=== PATIENT | male | born 1940 | race Caucasian/White ===

== ENCOUNTER 2018-10-28 18:54 | Emergency (ER) | payer MEDICARE, OTHER ==
[~2018-10-28] VITALS: Ht 180.3 cm; Wt 68.0 kg
[2018-10-28] MEDS ORDERED: ASPIR 8181 MG PO (19:19)
[2018-10-28] MEDS ORDERED: LIPITOR10 MG PO (19:19)
[2018-10-28] MEDS ORDERED: MEXILETINE HCL200 M1 PO (19:19)
[2018-10-28] MEDS ORDERED: COREG12.5 MG PO (19:19)
[2018-10-28] MEDS ORDERED: COENZYME Q10200 M2 PO (19:20)
[2018-10-28] MEDS ORDERED: MAGOX 400400 MG PO (19:21)
[2018-10-28] MEDS ORDERED: FISH OIL 1,001000 M2 PO (19:21)
[2018-10-28 20:42] LABS: ABSOLUTE BASOPHILS 0.1 thou/uL (0.0-0.2); ABSOLUTE EOSINOPHILS 0.3 thou/uL (0.0-0.7); ABSOLUTE LYMPHOCYTES 1.9 thou/uL (0.8-5.3); ABSOLUTE MONOCYTES 0.9 thou/uL (0.0-1.2); ABSOLUTE NEUTROPHILS 4.1 thou/uL (1.6-8.1); BASOPHILS 0.8 %; EOSINOPHILS 3.9 %; HEMOGLOBIN 13.2 gm/dL (14.0-18.0); LYMPHOCYTES 26.4 %; MCH 33.5 pg (26.0-34.0); MCHC 33.9 g/dL (28.0-37.0); MCV 98.9 fL (80.0-100.0); MONOCYTES 12.7 %; MPV 8.4 fl. (7.2-11.1); NUCLEATED RBCS 0 /100WBC; PLATELET COUNT* 190 thou/uL (150-400); POLYS 56.2 %; RBC 3.94 mil/uL (4.50-6.00); RDW-CV 13.1 % (10.5-14.5); WBC 7.3 thou/uL (4.0-11.0)
[2018-10-28 20:47] LABS: INR 1.1; PROTIME 11.5 Seconds (9.20-11.50)
[2018-10-28 20:55] LABS: ANION GAP 4 mmol/L (7-16); BUN 20 mg/dL (7-18); CALCIUM 8.8 mg/dL (8.5-10.1); CHLORIDE 100 mmol/L (98-107); CO2 32 mmol/L (21-32); CREATININE 0.8 mg/dL (0.6-1.3); GLUCOSE 89 mg/dL (70-99); POTASSIUM 4.3 mmol/L (3.5-5.1); SODIUM 136 mmol/L (136-145); TROPONIN-I LEVEL <0.06 ng/mL (<0.06)
[2018-10-28 20:57] LABS: ALBUMIN 3.4 g/dL (3.4-5.0); ALKALINE PHOSPHATASE 59 U/L (46-116); LIPASE 150 U/L (73-393); NT-PRO BRAIN NAT PEPTIDE 426 pg/mL (<300); SGOT 32 U/L (15-37); SGPT 14 U/L (30-65); TOTAL BILIRUBIN 0.7 mg/dL (<0.1-1.0); TOTAL PROTEIN 6.8 g/dL (6.4-8.2)
[2018-10-28] MEDS ORDERED: OMEPRAZOLE40 MG PO (23:15)
[2018-10-28] MEDS ORDERED: CARAFATE 1 GM TA1 GM PO (23:15)
[2018-10-28 23:28] VITALS: BP 147/76
--- NOTE | 2018-10-29 12:01 | EKG ---
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: EMA : 1940 Requested By: Hailee Everett Order Number: [id number] MD: Calderon Hairston Measurements Intervals [place] Rate: 57 P: 60 MI: 341 QRS: 20 QRSD: 161 T: 1 QT: 437 QTc: 426 Interpretive Statements Sinus rhythm Prolonged MI interval Right bundle branch block No previous ECG available for comparison Electronically Signed On 10-29-2018 12:01:06 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
== END 2018-10-28 23:28 | disposition home or self-care (01) ==
LOC: M.ERS 18:54
PROVIDERS: Personal Emergency Response Attendant
DX: K21.9 Gastro-esophageal reflux disease without esophagitis (principal); Z95.5 Presence of coronary angioplasty implant and graft; Z90.79 Acquired absence of other genital organ(s)

== ENCOUNTER 2019-09-04 09:38 | Emergency (ER) | payer MEDICARE, OTHER ==
[~2019-09-04] VITALS: Ht 180.3 cm; Wt 68.0 kg
[~2019-09-04 09:38] MED LIST: ASPIR 8181 MG PO; CARAFATE 1 GM TA1 GM PO; COENZYME Q10200 M2 PO; COREG12.5 MG PO; FISH OIL 1,001000 M2 PO; LIPITOR10 MG PO; MAGOX 400400 MG PO; MEXILETINE HCL200 M1 PO; OMEPRAZOLE40 MG PO
[2019-09-04] MEDS ORDERED: VITAMIN B-121000 MC2 SUBLING (09:48)
[2019-09-04 10:03] LABS: ABSOLUTE EOSINOPHILS 0.1 thou/uL (0.0-0.7); ABSOLUTE LYMPHOCYTES 1.3 thou/uL (0.8-5.3); ABSOLUTE MONOCYTES 0.4 thou/uL (0.0-1.2); ABSOLUTE NEUTROPHILS 2.3 thou/uL (1.6-8.1); EOSINOPHILS 2.3 %; HEMOGLOBIN 13.7 gm/dL (14.0-18.0); LYMPHOCYTES 31.3 %; MCH 33.4 pg (26.0-34.0); MCHC 34.3 g/dL (28.0-37.0); MCV 97.6 fL (80.0-100.0); MONOCYTES 10.4 %; MPV 8.2 fl. (7.2-11.1); NUCLEATED RBCS 0 /100WBC; PLATELET COUNT* 192 thou/uL (150-400); RDW-CV 13.4 % (10.5-14.5); WBC 4.1 thou/uL (4.0-11.0)
[2019-09-04 10:14] LABS: CREATININE 1.3 mg/dL (0.6-1.3); POTASSIUM 4.6 mmol/L (3.5-5.1)
[2019-09-04 10:17] LABS: APTT 25.7 Seconds (25.0-31.3); INR 1.2; PROTIME 11.8 Seconds (9.20-11.50)
[2019-09-04 10:24] LABS: ALBUMIN 3.5 g/dL (3.4-5.0); TOTAL BILIRUBIN 1.1 mg/dL (<0.1-1.0); TOTAL PROTEIN 6.8 g/dL (6.4-8.2)
[2019-09-04 10:29] LABS: URINE BILIRUBIN NEGATIVE (Negative); URINE BLOOD NEGATIVE (Negative); URINE CLARITY CLEAR; URINE COLOR YELLOW; URINE GLUCOSE-RANDOM NEGATIVE (Negative); URINE KETONES TRACE (Negative); URINE LEUKOCYTES-REFLEX NEGATIVE (Negative); URINE NITRITE-REFLEX NEGATIVE (Negative); URINE PROTEIN 1+ (Negative); URINE UROBILINOGEN 0.2 E.U./dl (0.2-1.0)
[2019-09-04 11:16] VITALS: BP 120/74
--- NOTE | 2019-09-04 15:22 | EKG ---
[place] [address] ELECTROCARDIOGRAM REPORT Name: MARCIAL BERNSTEIN Room: [facility]#: [id number] Admission: 09/04/19 Attend Phys: Discharge: 09/04/19 Date of : 44 Report #: [id number] THIS REPORT FOR: //name// [facility] ED Test Date: 2019-09-04 Test Time: 10:01:55 Pat Name: MARCIAL BERNSTEIN Department: Room: Gender: M Sample Checker: [facility] : 1940 Requested By: Myron Wells Order Number: [id number] MD: Jorge Wiggins Measurements Intervals [place] Rate: 50 P: 56 FL: 349 QRS: 247 QRSD: 137 T: 37 QT: 497 QTc: 454 Interpretive Statements sinus bradycardia with first degree av block low voltage incomplete RBBB Compared to ECG 10/28/2018 19:28:12 no change Electronically Signed On 09-04-2019 15:22:00 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
== END 2019-09-04 11:17 | disposition home or self-care (01) ==
LOC: M.ERS 09:38
PROVIDERS: Family Medicine
DX: R55 Syncope and collapse (principal); Z95.2 Presence of prosthetic heart valve; Z90.79 Acquired absence of other genital organ(s); Z95.0 Presence of cardiac pacemaker

== ENCOUNTER → 2020-03-08 | Outpatient (CLI) | payer MEDICARE, OTHER ==
[~2020-03-08] MED LIST changes: +VITAMIN B-121000 MC2 SUBLING
== END ==
LOC: M.RAD 12:36
PROVIDERS: ATTEND Internal Medicine
DX: M47.816 Spondylosis without myelopathy or radiculopathy, lumbar region (principal); M41.86 Other forms of scoliosis, lumbar region

== ENCOUNTER → 2020-10-14 | Outpatient (CLI) | payer MEDICARE, OTHER | LOC: M.ULTRA 10-01 16:50 | PROVIDERS: ATTEND Internal Medicine | DX: I65.23 Occlusion and stenosis of bilateral carotid arteries (principal); M79.672 Pain in left foot; S32.82XS Multiple fractures of pelvis without disruption of pelvic ring, sequela; M79.89 Other specified soft tissue disorders; X58.XXXS Exposure to other specified factors, sequela ==